=== PATIENT | female | born 1960 | race Hispanic/Latino ===

== ENCOUNTER 2017-09-28 08:26 | Emergency (ER) | payer MEDICARE, MEDICAID ==
--- NOTE | 2017-09-28 09:22 | Emergency Department Report ---
Chief Complaint: Medical Clearance Stated Complaint: SLEEPY Time Seen by Provider: 09/28/17 09:18 - HPI History of Present Illness: Patient presents from her assisted with what appears to be increased fatigue/ drowsiness. The patient herself says that this started after taking her nighttime medications but is currently 9:15 AM the morning. Unknown if she took extra of the medication. She is able to converse but often does so with her eyes closed and appears to be falling asleep if not stimulated. She says she is in a assisted because "it is some place to stay." - ROS Review of Systems: ROS: +Fatigue, drowsiness -Fever -MAYO -CP - Exam Vital Signs: Vital Signs 09/28/17 08:30 Temperature 97.4 F L Pulse Rate 70 Respiratory 16 Rate Blood Pressure 107/61 O2 Sat by Pulse 99 Oximetry Physical Exam: GENERAL: Patient is disheveled. HENT: Normocephalic. Atraumatic. EYES: Extraocular motions are intact. NECK: Supple. Trachea is midline. CHEST/LUNGS: Clear to auscultation. There is no respiratory distress noted. HEART/CARDIOVASCULAR: Regular. There is no tachycardia. There is no murmur. ABDOMEN: Abdomen is soft, nontender. Patient has normal bowel sounds. SKIN: Skin is warm and dry NEURO: The patient is awake, alert, and oriented but is very drowsy. MUSCULOSKELETAL: There is no obvious deformity. There is no evidence of acute injury. MSE screening note: Focused history and physical exam performed. Due to findings the following was ordered: I placed preliminary orders of a CBC, CMP, urinalysis, urine drug screen, TSH and the patient will be brought to the main ED for further evaluation. ED Disposition for MSE Condition: Stable
[2017-09-28 10:50] LABS: Basophils % (Auto) 0.4 % (0.0-1.8); Eosinophils # (Auto) 0.3 K/mm3 (0.0-0.4); Hematocrit 36.7 % (30.3-42.9); Lymphocytes # (Auto) 2.2 K/mm3 (1.2-5.4); Lymphocytes % (Auto) 21.5 % (13.4-35.0); Mean Corpuscular HGB Conc 33 % (30-34); Mean Corpuscular Hemoglobin 26 pg (28-32); Mean Corpuscular Volume 80 fl (79-97); Monocytes # (Auto) 0.6 K/mm3 (0.0-0.8); Monocytes % (Auto) 5.7 % (0.0-7.3); Platelet Count 302 K/mm3 (140-440); Red Blood Count 4.58 M/mm3 (3.65-5.03); Red Cell Distribution Width 14.7 % (13.2-15.2)
--- NOTE | 2017-09-28 10:52 | Emergency Department Report ---
ED Medical Clearance HPI - General Chief complaint: Medical Clearance Stated complaint: SLEEPY Time Seen by Provider: 09/28/17 09:18 Source: patient, EMS Mode of arrival: Wheelchair - History of Present Illness Initial comments: Patient is 57 years old female history of diabetes and depression, living in a intermediate. Patient was sent to the ER for evaluation of sleepiness that's been going all this morning. Patient intermediate stated that she possibly took an extra dose of her Abilify. Patient denied that she took extra doses. She admitted that she feel very sleepy. Patient denied any confusion, weakness, numbness or tingling sensation. She denied any bowel or bladder incontinence. No shortness of breath or chest pain. Patient denied any nausea or vomiting or diarrhea. MD Complaint: medical clearance request -: Gradual Reason for Medical Clearance: intoxication Place: home Traumatic Symptoms: denies traumatic injury Associated Symptoms: denies: chest pain, shortness of breath, palpitations, diaphoresis, denies other symptoms, confusion, cough, fever/chills, headaches, anorexia, malaise, nausea/vomiting, rash, seizure, syncope, weakness Home medications: Previous Rx's Medication Instructions Recorded Last Taken Type Levofloxacin [Levaquin TAB] 500 mg PO QDAY #7 tablet 09/28/17 Unknown Rx Allergies/Adverse reactions: Allergies Allergy/AdvReac Type Severity Reaction Status Date / Time No Known Allergies Allergy Unverified 09/28/17 08:35 ED Review of Systems ROS: Stated complaint: SLEEPY Other details as noted in HPI Comment: All other systems reviewed and negative Constitutional: denies: chills, diaphoresis Respiratory: denies: cough, orthopnea, shortness of breath, SOB with exertion Cardiovascular: denies: chest pain, palpitations, dyspnea on exertion, orthopnea , edema, syncope, paroxysmal nocturnal dyspnea Gastrointestinal: denies: abdominal pain, nausea, vomiting, diarrhea, constipation, hematemesis Genitourinary: denies: urgency, dysuria, frequency, hematuria Skin: denies: rash, lesions, change in color Neurological: denies: headache, weakness, numbness, paresthesias, confusion, abnormal gait, vertigo Psychiatric: denies: depression, auditory hallucinations, visual hallucinations , homicidal thoughts, suicidal thoughts ED Past Medical Hx - Past Medical History Previous Medical History?: Yes Hx Diabetes: Yes Hx Psychiatric Treatment: Yes (depression) - Surgical History Past Surgical History?: Yes Hx Cholecystectomy: Yes Additional Surgical History: Hysterectomy - Social History Smoking Status: Never Smoker Substance Use Type: None - Medications Home Medications: Home Medications Medication Instructions Recorded Confirmed Last Taken Type Levofloxacin [Levaquin TAB] 500 mg PO QDAY #7 tablet 09/28/17 Unknown Rx ED Physical Exam - General Limitations: No Limitations General appearance: other (patient is drowsy, sleepy but answer questions appropriately) - Head Head exam: Present: atraumatic, normocephalic, normal inspection - Eye Eye exam: Present: normal appearance, PERRL Pupils: Present: normal accommodation - ENT ENT exam: Present: normal exam, normal orophraynx, mucous membranes moist - Neck Neck exam: Present: normal inspection, full ROM. Absent: tenderness, meningismus, lymphadenopathy, thyromegaly - Respiratory Respiratory exam: Present: normal lung sounds bilaterally. Absent: respiratory distress, wheezes, rales, rhonchi, stridor, chest wall tenderness, accessory muscle use, decreased breath sounds, prolonged expiratory - Cardiovascular Cardiovascular Exam: Present: regular rate, normal rhythm, normal heart sounds - GI/Abdominal GI/Abdominal exam: Present: soft, normal bowel sounds. Absent: distended, tenderness, guarding, rebound, rigid, organomegaly, mass, bruit, pulsatile mass , hernia - Extremities Exam Extremities exam: Present: normal inspection, full ROM, normal capillary refill. Absent: tenderness, pedal edema, joint swelling, calf tenderness - Back Exam Back exam: Present: normal inspection, full ROM. Absent: tenderness, CVA tenderness (R), CVA tenderness (L), muscle spasm, paraspinal tenderness, vertebral tenderness, rash noted - Neurological Exam Neurological exam: Present: alert, oriented X3, CN II-XII intact, normal gait, reflexes normal. Absent: motor sensory deficit - Skin Skin exam: Present: warm, intact, normal color. Absent: cyanosis ED Course Vital Signs 09/28/17 09/28/17 08:30 13:06 Temperature 97.4 F L Pulse Rate 70 55 L Respiratory 16 16 Rate Blood Pressure 107/61 Blood Pressure 113/55 [Left] O2 Sat by Pulse 99 98 Oximetry - Reevaluation(s) Reevaluation #1: 09/28/17 15:14 Patient is awake, alert, oriented 3 in no acute distress. Patient informed about her CT scan results and labs results which is unremarkable except for a UTI. Patient is safe to return to the intermediate. ED Medical Decision Making - Lab Data Result diagrams: 09/28/17 10:30 09/28/17 10:30 - Radiology Data Radiology results: report reviewed Referring Physician: NEAL SAUCEDO Patient Name: RETA POSADA Date of : 1958-08-11 Sex: Female Report Date: 2017-09-28 Report Status: Finalized Findings [facility] [address] [place] [address] Cat Scan Report Signed Patient: RETA POSADA MR#: [id number] : 08/11/1958 Acct:[id number] Age/Sex: 59 / F ADM Date: 09/28/17 Loc: ED Attending Dr: Ordering Physician: NEAL SAUCEDO Date of Service: 09/28/17 Procedure(s): CT head/brain wo con Accession Number(s): [id number] cc: NEAL SAUCEDO CT HEAD WITHOUT CONTRAST: HISTORY: Altered mental status. TECHNIQUE: Sequential 2.5mm CT images. COMPARISON: none. FINDINGS: Cerebral Parenchyma: Within normal limits. Cerebellum: Within normal limits. Brainstem: Within normal limits. Ventricles: Normal. Sella: Normal. Extra-axial spaces: Normal. Basal Cisterns: Normal. Intracranial Hemorrhage: None. Midline Shift: None. Calvarium: Normal. Sinuses: Normal. Mastoid Air Cells: Normal. Visualized Orbits: Normal. IMPRESSION: Cranial CT scan within normal limits. Transcribed By: TTR Dictated By: DRE BRIDGES JR, MD Electronically Authenticated By: DRE BRIDGES JR, MD Signed Date/Time: 09/28/171121 DD/ 21 TD/TT: 09/28/17 112 ED Disposition Clinical Impression: Altered mental status, UTI (urinary tract infection) Disposition: DC-01 TO HOME OR SELFCARE Is pt being admited?: No Condition: Stable Instructions: Urinary Tract Infection in Women (ED), Altered Mental Status (ED) Prescriptions: Levofloxacin [Levaquin TAB] 500 mg PO QDAY #7 tablet Referrals: PRIMARY CARE, [Primary Care Provider] - 3-5 Days
--- NOTE | 2017-09-28 11:28 | Cat Scan Report ---
CT HEAD WITHOUT CONTRAST: HISTORY: Altered mental status. TECHNIQUE: Sequential 2.5mm CT images. COMPARISON: none. FINDINGS: Cerebral Parenchyma: Within normal limits. Cerebellum: Within normal limits. Brainstem: Within normal limits. Ventricles: Normal. Sella: Normal. Extra-axial spaces: Normal. Basal Cisterns: Normal. Intracranial Hemorrhage: None. Midline Shift: None. Calvarium: Normal. Sinuses: Normal. Mastoid Air Cells: Normal. Visualized Orbits: Normal. IMPRESSION: Cranial CT scan within normal limits.
[2017-09-28 11:33] LABS: Alanine Aminotransferase 16 units/L (7-56); Albumin 3.5 g/dL (3.9-5); BUN/Creatinine Ratio 18; Blood Urea Nitrogen 16 mg/dL (7-17); Calcium 8.8 mg/dL (8.4-10.2); Hemolysis Index 25
[2017-09-28 11:43] LABS: Bacteria,Urine 1+ /HPF (Negative); Bilirubin,Urine NEG (Negative); Blood,Urine SM (Negative); Color,Urine Yellow (Yellow); Mucus,Urine FEW /HPF; Nitrite,Urine NEG (Negative); Protein,Urine <15 mg/dL mg/dL (Negative); Urobilinogen,Urine < 2.0 mg/dL (<2.0)
[2017-09-28 11:50] LABS: Amphetamine Screen,Urine PRESUMPTIVE NEGATIVE; Benzodiazepines Screen,Urine PRESUMPTIVE NEGATIVE; Cannabinoid Screen,Urine PRESUMPTIVE NEGATIVE; Cocaine Screen,Urine PRESUMPTIVE NEGATIVE; Methadone Screen,Urine PRESUMPTIVE NEGATIVE; Opiate Screen,Urine PRESUMPTIVE NEGATIVE
[2017-09-28 13:06] VITALS: BP 113/55
[2017-09-28] MEDS ORDERED: LEVAQUIN PO ONE (13:08)
== END 2017-09-28 15:53 | disposition home or self-care (01) ==
LOC: EDBD → ED 08:26
DX: N39.0 Urinary tract infection, site not specified (principal); R41.82 Altered mental status, unspecified; E11.9 Type 2 diabetes mellitus without complications; F32.9 Major depressive disorder, single episode, unspecified; Z90.710 Acquired absence of both cervix and uterus
CPT/HCPCS: 36415; 70450; 80053; 80307; 81001; 84443; 85025; 99284; G0480; 80320

== ENCOUNTER 2017-10-30 16:00 | Emergency (ER) | payer MEDICARE, MEDICAID ==
[2017-10-30 16:15] VITALS: BP 136/81
[2017-10-30 16:28] LABS: Basophils # (Auto) 0.1 K/mm3 (0.0-0.1); Basophils % (Auto) 0.5 % (0.0-1.8); Eosinophils # (Auto) 0.4 K/mm3 (0.0-0.4); Eosinophils % (Auto) 3.7 % (0.0-4.3); Hematocrit 36.9 % (30.3-42.9); Hemoglobin 11.6 gm/dl (10.1-14.3); Lymphocytes # (Auto) 3.5 K/mm3 (1.2-5.4); Lymphocytes % (Auto) 32.2 % (13.4-35.0); Mean Corpuscular HGB Conc 32 % (30-34); Mean Corpuscular Volume 79 fl (79-97); Monocytes # (Auto) 0.4 K/mm3 (0.0-0.8); Monocytes % (Auto) 3.7 % (0.0-7.3); Platelet Count 380 K/mm3 (140-440); Red Blood Count 4.69 M/mm3 (3.65-5.03); Red Cell Distribution Width 15.1 % (13.2-15.2)
[2017-10-30 16:46] LABS: Mean Corpuscular Hemoglobin 25 pg (28-32)
[2017-10-30 16:55] LABS: Calcium 9.1 mg/dL (8.4-10.2)
--- NOTE | 2017-10-30 18:45 | Emergency Department Report ---
HPI - General Chief Complaint: Psych Time Seen by Provider: 10/30/17 18:38 - HPI HPI: 57-year-old female presents to ED with history of chronic back pain, she uses [id number] medication but states for the past 3 days over-the- counter medication has not been helping. She complains of pain as a dull, 3 out of 10, located at both sides of her spinal cord. Pain is worse with movement. She also has a history of depression currently takes Prozac and Abilify states she doesn't think medications are helping and is not currently having suicidal ideations. ED Past Medical Hx - Past Medical History Previous Medical History?: Yes Hx Diabetes: Yes Hx Psychiatric Treatment: Yes (depression) Additional medical history: High cholesterol - Surgical History Past Surgical History?: Yes Hx Cholecystectomy: Yes Additional Surgical History: Hysterectomy - Social History Smoking Status: Never Smoker Substance Use Type: None - Medications Home Medications: Home Medications Medication Instructions Recorded Confirmed Last Taken Type Levofloxacin [Levaquin TAB] 500 mg PO QDAY #7 tablet 09/28/17 Unknown Rx methOCARBAMOL [Robaxin TAB] 500 mg PO Q6H PRN #10 tablet 10/30/17 Unknown Rx ED Review of Systems ROS: Stated complaint: BACK PAIN X3 DAYS Other details as noted in HPI Cardiovascular: denies: chest pain, palpitations Gastrointestinal: nausea Musculoskeletal: back pain Psychiatric: anxiety, depression, suicidal thoughts Physical Exam - Physical Exam Vital Signs: Vital Signs 10/30/17 16:10 Temperature 97.3 F L Pulse Rate 89 Respiratory 16 Rate Blood Pressure 136/81 O2 Sat by Pulse 97 Oximetry Physical Exam: Gen. alert and oriented 3 in no distress Head atraumatic normocephalic Eyes PERR LA EOMI Chest regular rate and rhythm normal S1-S2 lungs clear bilaterally Abdomen soft nondistended Back no point tenderness mild paravertebral tenderness Neuro no focal deficit. Psych depressed mood with no SI ED Course Vital Signs 10/30/17 16:10 Temperature 97.3 F L Pulse Rate 89 Respiratory 16 Rate Blood Pressure 136/81 O2 Sat by Pulse 97 Oximetry - Reevaluation(s) Reevaluation #1: 10/30/17 23:12 Patient was seen by mental health trucking supervisor, who cleared patient for DC home as far as her mental health is concerned ED Medical Decision Making - Lab Data Result diagrams: 10/30/17 16:17 10/30/17 16:17 Critical care attestation.: If time is entered above; I have spent that time in minutes in the direct care of this critically ill patient, excluding procedure time. ED Disposition Clinical Impression: Back pain Qualifiers: Back pain location: low back pain Chronicity: acute Back pain laterality: unspecified Sciatica presence: without sciatica Qualified Code(s): M54.5 - Low back pain Depression Qualifiers: Depression Type: other depression Qualified Code(s): F32.89 - Other specified depressive episodes Disposition: DC-01 TO HOME OR SELFCARE Is pt being admited?: No Does the pt Need Aspirin: No Condition: Stable Instructions: Low Back Strain (ED), Depression (ED) Prescriptions: methOCARBAMOL [Robaxin TAB] 500 mg PO Q6H PRN #10 tablet PRN Reason: Pain
[2017-10-30 18:46] LABS: Bilirubin,Urine NEG (Negative); Blood,Urine NEG (Negative); Color,Urine Yellow (Yellow); Mucus,Urine FEW /HPF; Protein,Urine <15 mg/dL mg/dL (Negative); Urobilinogen,Urine < 2.0 mg/dL (<2.0)
[2017-10-30 18:54] LABS: Amphetamine Screen,Urine PRESUMPTIVE NEGATIVE; Benzodiazepines Screen,Urine PRESUMPTIVE NEGATIVE; Cannabinoid Screen,Urine PRESUMPTIVE NEGATIVE; Cocaine Screen,Urine PRESUMPTIVE NEGATIVE; Methadone Screen,Urine PRESUMPTIVE NEGATIVE; Opiate Screen,Urine PRESUMPTIVE NEGATIVE
[2017-10-30] MEDS ORDERED: ULTRAM PO ONE (23:55)
== END 2017-10-31 01:00 | disposition home or self-care (01) ==
LOC: ED 16:00
DX: M54.5 Low back pain (principal); F32.89 Other specified depressive episodes; E11.9 Type 2 diabetes mellitus without complications; E78.00 Pure hypercholesterolemia, unspecified; Z90.49 Acquired absence of other specified parts of digestive tract; Z90.710 Acquired absence of both cervix and uterus
CPT/HCPCS: 36415; 80048; 80307; 81001; 85025; 99284; G0480; 80320